=== PATIENT | female | born 1950 | race Caucasian/White ===

== ENCOUNTER 2016-12-30 20:03 | Inpatient (IN) | payer MEDICARE, BC ==
[~2016-12-30] VITALS: Ht 165.1 cm; Wt 64.1 kg
--- NOTE | ~2016-12-30 | HEMODYNAMI ---
PATIENT:KYLIE MOTTA MEDICAL RECORD: [id number] : 52 LOCATION:[facility] D.2309 ADMISSION DATE: 12/30/16 Generatedon:12/31/201616:25 Patient name: KYLIE MOTTA Patient #: [id number] SSN: DO B: 1950 Date of study: 12/31/2016 Page: Of Hemodynamic Procedure Report Patient Data Patient Demographics Procedure consent was obtained First Name: KYLIE Gender: Female Last Name: KALIA : 1950 Middle Initial: GEORGINA Age: 66 year(s) Patient #: [id number] Race: Unknown Additional ID: [id number] Contact details Address: [address] [place] [address] State: [place] City: [place] Zip code: [address] Admission Admission Data Admission Date: 12/30/2016 Admission Time: 22:56 Room #: D2309 Procedure Procedure Types Cath Procedure Diagnostic Procedure LHC LHC w/Coronaries Miscellaneous Procedures Moderate Sedation up to 15 minutes Procedure Description Procedure Date Procedure Date: 12/31/2016 Procedure Start Time: 16:18 Procedure End Time: 16:24 Procedure Staff Name Function Kahlil Dumont MD Performing Physician Suzy Sun RT Scrub Angelic Dolan RN Nurse Simon Jenkins RT Monitor Procedure Data Cath Procedure Fluoroscopy Diagnostic fluoroscopy Total fluoroscopy Time: 0.8 time: 0.8 min min Diagnostic fluoroscopy Total fluoroscopy dose: 202 dose: 202 mGy mGy Contrast Material Contrast Material Type Amount (ml) Isovue 300 43 Entry Location Entry Primary Successful Side Size Upsize Upsize Entry Closure Mcmullen ccessful Closure Location (Fr) 1 (Fr) 2 (Fr) Remarks Device Remarks Radial Right 6 Fr Mechanical artery Short Compression Estimated blood loss: 10 ml Diagnostic catheters Device Type Used For End Catheter Placement Cordis RBL 4 catheter (NO Procedure CHARGE) Procedure Complications No complications Procedure Medications Medication Administration Route Dosage Heparin Flush Bag added to field 2 bags (1000units/500ml NS) Lidocaine 2% added to field 20 Radial Cocktail added to field 1 syringe (Verapomil 2mg/Nitro 400mcg/Heparin 1500units) Oxygen NC 2 l/min Versed I.V. 1 mg Fentanyl I.V. 50 mcg Versed I.V. 1 mg Fentanyl I.V. 50 mcg Fentanyl I.V. 50 mcg Radial Cocktail I.A. 1 syringe (Verapomil 2mg/Nitro 400mcg/Heparin 1500units) Fentanyl I.V. 50 mcg Hemodynamics Rest Heart Rate: 87 (bpm) Pressure Samples Time Site Value (mmHg) Purpose Heart Use Rate(bpm) 16:21 AO 110/67(86) Snapshot 88 Snapshots Pre Cath Intra NCS Post Cath Vital Signs Time Heart Resp SPO2 etCO2 US5dhzp NIBP (mmHg) Rhythm Pain Status Sed ation Rate (ipm) (%) (mmHg) (mmHg) Level (bpm) 16:06:29 89 14 100 0 0 142/83(109) NSR 10 (11) , 10( A) Unimaginable unspeakable 16:10:43 87 16 99 0 0 137/76(107) NSR 10 (11) , 10( A) Unimaginable unspeakable 16:14:57 84 16 99 0 0 123/73(101) NSR 8 (11) , 10( A) Utterly horrible 16:19:08 82 16 100 0 0 123/63(83) NSR 8 (11) , 10( A) Utterly horrible 16:23:18 88 16 96 0 0 96/47(68) NSR 4 (11) , 10( A) Distressing Medications Time Medication Route Dose Verified Delivered Reason Notes Effectiveness by by 16:05:33 Lidocaine 2% added 20ml Kahlil Guillory to sharp's to vial Tim Dumont MD field 16:05:40 Radial Cocktail added 1 Kahlil Guillory used for (Verapomil to syringe Tim Dumont MD procedure 2mg/Nitro field 400mcg/Heparin 1500units) 16:05:48 Heparin Flush added 2 bags Kahlil Guillory used for Bag to Tim Dumont MD procedure (1000units/500ml field NS) 16:06:04 Oxygen NC 2 l/min Kahlil Angelic for back Tim Dolan RN pain 16:11:56 Versed I.V. 1 mg Kahlil Angelic for sedation Tim Dolan RN 16:12:02 Fentanyl I.V. 50 mcg Kahlil Angelic for sedation Tim Dolan RN 16:14:23 Versed I.V. 1 mg Kahlil Angelic for sedation Tim Dolan RN 16:14:26 Fentanyl I.V. 50 mcg Kahlil Angelic for sedation Tim Dolan RN 16:17:40 Fentanyl I.V. 50 mcg Kahlil Angelic for sedation Tim Dolan RN 16:20:19 Radial Cocktail I.A. 1 Kahlil Guillory for (Verapomil syringe Tim Dumont MD vasodilation 2mg/Nitro 400mcg/Heparin 1500units) 16:21:02 Fentanyl I.V. 50 mcg Kahlil Bolanosrey for sedation Tim Dumont MD Procedure Log Time Note 15:37:00 Diagnostic Cath status Elective 15:37:05 Simon VASQUEZ(R) sent for patient. Start room use. 15:37:06 Time tracking: Regular hours 15:37:12 Plan of Care:Hemodynamics will remain stable., Cardiac rhythm will remain stable., Comfort level will be maintained., Respiratory function will remain adequate., Patient/ family verbilizes understanding of procedure., Procedure tolerated without complication., Recovers from procedure without complications.. 15:57:28 Patient received from ICU to [facility]3] 1 Alert and oriented. Tansferred to table in Supine position. 16:05:16 Vital chart was started 16:05:31 Warm blankets applied, and chandana hugger turned on for patient comfort. 16:05:31 Correct patient and procedure confirmed by team. 16:05:32 Signed procedure consent form obtained from patient. 16:05:33 Lidocaine 2% 20ml vial added to field was administered by Kahlil Dumont MD; to sharp's; 16:05:33 ECG and BP/O2 sat monitors applied to patient. 16:05:40 Radial Cocktail (Verapomil 2mg/Nitro 400mcg/Heparin 1500units) 1 syringe added to field was administered by Kahlil Dumont MD; used for procedure; 16:05:48 Heparin Flush Bag (1000units/500ml NS) 2 bags added to field was administered by Kahlil Dumont MD; used for procedure; 16:06:04 Oxygen 2 l/min NC was administered by Angelic Dolan RN; for back pain; 16:08:34 Baseline sample Acquired. 16:08:37 Rhythm: sinus rhythm 16:08:39 Full Disclosure recording started 16:09:18 H&P Date Dictated: 12/30/2016 Within 30 days and on chart.. 16:09:19 Pre-procedure instructions explained to patient. 16:09:20 Pre-op teaching completed and patient verbalized understanding. 16:09:21 Family in waiting room. 16:09:22 Patient NPO since Midnight. 16:09:24 Is the patient allergic to Iodine/contrast media? No. 16:09:31 Is patient on blood thinner?No 16:09:34 ACC The patient was administered the following blood thiners within the last 24 hours: None 16:09:36 Patient diabetic? No. 16:09:40 Patient not . Patient is over age 55. 16:09:41 Previous problem with sedation/anesthesia? No ? 16:09:42 Snore? Yes 16:09:43 Sleep apnea? No 16:09:45 Deviated septum? No 16:09:46 Opens mouth fully? Yes 16:09:46 Sticks out tongue? Yes 16:09:48 Airway obstruction? No ? 16:09:51 Dentures? No ? 16:09:54 Pre procedure: right dorsailis pedis pulse 1+ Palpable, but thready & weak; easily obliterated 16:09:56 Modified Dario's test Ulnar < 7 seconds 16:10:14 Patient pain scale 10/10 Physician observed.. 16:10:23 IV patent on arrival in right forearm with 0.9% NaCl at O. 16:10:33 Lab results completed and on chart. 16:10:39 Right Radial & Right Groin area was prepped with chlora-prep and draped in sterile fashion 16:10:40 Alarms reviewed by R. N. 16:10:40 Sharps counted by scrub and verified by R.N. 16:10:42 --------ALL STOP TIME OUT------ 16:10:43 Final Timeout: patient, procedure, and site verified with staff and physician. All members of the team are in agreement. 16:10:45 Right Radial & Right Groin site verified by team. 16:10:48 Physical assessment completed. ASA score P 2 - A patient with mild systemic disease as per Kahlil Dumont MD. 16:10:52 Sedation plan: IV Moderate Sedation Versed, Fentanyl 16:10:55 Use device set Radial Dx 16:11:02 Tegaderm 4 x 4 opened to sterile field. 16:11:03 Acist Manifold opened to sterile field. 16:11:03 Acist Hand Control opened to sterile field. 16:11:05 Acist Syringe opened to sterile field. 16:11:05 Medline Cath Pack opened to sterile field. 16:11:06 Bag Decanter opened to sterile field. 16:11:06 Terumo 6Fr Slender Glidesheath opened to sterile field. 16:11:06 St Crispin 260cm J .035 wire opened to sterile field. 16:11:07 MBrace Wrist Support opened to sterile field. 16:11:56 Versed 1 mg I.V. was administered by Angelic Dolan RN; for sedation; 16:12:02 Fentanyl 50 mcg I.V. was administered by Angelic Dolan RN; for sedation; 16:14:23 Versed 1 mg I.V. was administered by Angelic Dolan RN; for sedation; 16:14:26 Fentanyl 50 mcg I.V. was administered by Angelic Dolan RN; for sedation; 16:17:40 Fentanyl 50 mcg I.V. was administered by Angelic Dolan RN; for sedation; 16:18:40 Procedure started. 16:18:45 Local anesthetic to right radial artery with Lidocaine 2% by Kahlil Dumont MD.INITIAL ACCESS ONLY 16:19:51 A 6 Fr Short sheath was inserted into the Right Radial artery 16:20:00 A CordWeight Wins RBL 4 catheter (NO CHARGE) was advanced over the wire and used for Procedure. 16:20:19 Radial Cocktail (Verapomil 2mg/Nitro 400mcg/Heparin 1500units) 1 syringe I.A. was administered by Kahlil Dumont MD; for vasodilation; 16:20:26 LV angiography performed. 16:20:27 LV gram done using BILLY 16:20:32 EF : 60 % 16:20:38 Injector settings: Ml/sec: 7, Volume: 15, 16:21:02 Fentanyl 50 mcg I.V. was administered by Kahlil Dumont MD; for sedation; 16:21:05 LCA angiography performed. 16:22:10 RCA angiography performed. 16:22:11 Catheter removed. 16:22:13 Terumo TR Band Standard opened to sterile field. 16:22:25 Sheath removed intact; hemostasis achieved with Mechanical Compression to the Right Radial artery. 16:22:29 Procedure ended.(Physican Out) 16:23:26 Fluoroscopy time 00.80 minutes. 16::31 Fluoroscopy dose: 202 mGy 16:23:31 Flurop Dose total: 202 16:23:41 Contrast amount:Isovue 300 43ml. 16:23:42 Sharps counted by scrub and verified by R.N. 16:23:46 TR band inflated with 10cc of air. 16:23:47 Insertion/operative site no bleeding no hematoma. 16:23:52 Post Procedure Pulses reassessed and unchanged 16:23:55 Post-procedure physical assessment completed. ASA score P 2 - A patient with mild systemic disease as per Kahlil Dumont MD. 16:23:58 Post procedure rhythm: unchanged. 16:24:06 Estimated blood loss: 10 ml 16:24:07 Post procedure instruction explained to patient.Patient verbalizes understanding. 16:24:08 Patient needs reinforcement of post procedure teaching. 16:24:20 Procedure Complication : No complications 16:24:29 Procedure and supply charges have been captured, reviewed, submitted and are correct. 16:24:30 Vital chart was stopped 16:24:30 See physician's report for complete and final results. 16:24:54 Report given to ICU. 16:24:57 Patient transfered to ICU with Bed. 16:24:59 Procedure ended. 16:24:59 Full Disclosure recording stopped 16:25:08 End room use (Document Last) Device Usage Item Name Manufacture Quantity Catalog Hospital Part Current Minimal Lot# / Number Charge Number Stock Stock Serial# Code Tegaderm 4 1 [id number] [id number] 5 x 4 Acist Acist 1 68166 388198 [id number] [id number] 5 Manifold [employer] Acist Hand Acist 1 13028 [id number] 254394 357818 5 Control [employer] Acist Acist 1 48688 537166 078249 655656 20 Syringe [employer] Medline Cardinal 1 [id number] 43678 036029 5 Cath Pack Health Bag Microtek 1 2002S 204748 74584 507017 5 [employer] Terumo 6Fr Terumo 1 [id number] 307532 862627 486297 [address] St Crispin 1 053401 025105 764481 926696 30 260cm J .035 wire MBrace Advanced 1 140-0250-00 894767 70117 221842 5 Wrist Vascular Support Dynamics Cordis RBL Cardinal 1 [id number] 521480 490273 5 4 catheter Health (NO CHARGE) Terumo TR Terumo 1 [id number] 314607 770066 700792 40 Band Standard Signature Audit Reardan Stage Time Signature Unsigned Intra-Procedure 12/31/2016 Simon Jenkins 4:25:21 PM RT(R) Signatures Monitor : Simon Jenkins RT Signature : Date : Time : [place] [address] [place] [address]
[~2016-12-30 20:03] MED LIST: ALTACE2.5 MG PO; AMBIEN10 MG PO; LIPITOR80 MG PO; PERCOCET 10/3251 TA1 PO; RESTORIL15 MG PO; ULTRAM50 MG PO; VOLTAREN75 MG PO; XANAX0.5 MG PO
[2016-12-30 21:05] LABS: APPEARANCE CLEAR (CLEAR); BILIRUBIN NEGATIVE (NEGATIVE); COLOR STRAW (YELLOW); GLUCOSE NEGATIVE (NEGATIVE); KETONE NEGATIVE (NEGATIVE); LEUKOCYTE ESTERASE TRACE (NEGATIVE); NITRITE NEGATIVE (NEGATIVE); PROTEIN NEGATIVE (NEGATIVE); UROBILINOGEN NORMAL (NORMAL)
[2016-12-30 21:06] LABS: BACTERIA FEW /hpf (NONE SEEN); EPITHELIAL CELLS 0-5 /hpf (0-5); MUCUS <1+ /lpf (NONE SEEN); RED CELLS - URINE OCC /hpf (0-5); WHITE CELLS - URINE RARE /hpf (0-5)
[2016-12-30 21:22] LABS: BASOPHILS 0.6 % (0.0-2.0); EOSINOPHILS 8.4 % (0-7); HEMATOCRIT 38.3 % (36.0-48.0); HEMOGLOBIN 13.1 g/dL (12-16); IMMATURE GRANULOCYTES 0.6 % (0-5); LYMPHOCYTES 37.1 % (15-50); MCH 28.2 pg (26.0-34.0); MCHC 34.2 g/dL (31.0-37.0); MCV 82.5 fL (80.0-100.0); MEAN PLATELET VOLUME 10.4 fL (7.4-10.4); NEUTROPHILS 44.3 % (40-80); PLATELET COUNT 285 10x3/uL (130-400); RBC 4.64 10x6/uL (4.00-5.40); RDW 12.9 % (11.5-14.5)
[2016-12-30 21:24] LABS: ALBUMIN 3.8 g/dL (3.4-5.0); ALKALINE PHOSPHATASE 71 U/L (46-116); ALT (SGPT) 38 U/L (10-68); BILIRUBIN - TOTAL 1.31 mg/dL (0.2-1.3); CALC OSMOLALITY 258 mosm/kg (275-300); CALCIUM 8.9 mg/dL (8.5-10.1); CARBON DIOXIDE 22.2 mmol/L (21.0-32.0); CHLORIDE - SERUM 92 mmol/L (98-107); CREATINE KINASE 149 UL (21-215); CREATININE - SERUM 0.9 mg/dL (0.6-1.3); GLUCOSE 124 mg/dL (74-106); MAGNESIUM - SERUM 1.7 mg/dL (1.8-2.4); POTASSIUM - SERUM 3.3 mmol/L (3.5-5.1); PRO BNP 125 pg/mL (0-125); PROTEIN - SERUM 6.3 g/dL (6.4-8.2); SODIUM 129 mmol/L (136-145); UREA NITROGEN 10 mg/dL (7-18); eGFR NON AFRICAN AMERICAN 67 mL/min (90-120)
[2016-12-30 21:27] LABS: TROPONIN-I < 0.017 ng/mL (0.000-0.060)
[2016-12-30 21:37] LABS: UDS - AMPHET NEGATIVE QUAL (NEGATIVE); UDS - BARB NEGATIVE QUAL (NEGATIVE); UDS - BENZO POSITIVE QUAL (NEGATIVE); UDS - COCAINE NEGATIVE QUAL (NEGATIVE); UDS - METH NEGATIVE QUAL (NEGATIVE); UDS - OPIATE NEGATIVE QUAL (NEGATIVE); UDS - PCP NEGATIVE QUAL (NEGATIVE); UDS - THC NEGATIVE QUAL (NEGATIVE)
[2016-12-31] VITALS (33 sets, daily range): BP systolic 87–156; BP diastolic 48–89; Ht 165.1 cm; Wt 64.1 kg
--- NOTE | 2016-12-31 01:57 | NUR ---
RECEIVED PATIENT FROM ER VIA STRETCHER, INITIAL ASSESSMENT COMPLETED PER FLOWSHEET. PATIENT UNRESPONSIVE TO COMMANDS AND PAINFUL STIMULI. EYES PERRLA @ 2MM WITH SLUGGISH RESPONSE, SCLERA IS WHITE. ORAL/NASAL MUCOSA IS MOIST AND INTACT, TONGUE IS MIDLINE. S1/S2 NOTED WITH PATIENT NSR ON TELEMETRY, HR 74 RYTHMIC AND REGULAR. BREATHING IS SHALLOW AND RAPID ON 15L VIA NRB MASK, EXPIRATORY WHEEZE NOTED BILATERAL UPPER WITH DIMINISHED MID AND LOWER. USE OF ACCESSORY MUSCLES NOTED. ABDOMEN IS ROUND AND SOFT, BOWEL SOUNDS ACTIVE X4. LICONA CATH SECURED VIA STATLOCK, CLEAR YELLOW URINE NOTED IN COLLECTION. ALL PULSES PALPABLE WITH NO MOVEMENT IN EXTREMITIES, CAP REFILL < 3 SEC. PIV X2 BILATERAL A/C, PATENT WITH FLUIDS INFUSING. NO FURTHER NEEDS AT THIS TIME, ALL VSS AND WILL CONTINUE TO MONITOR.
--- NOTE | 2016-12-31 03:03 | NUR ---
REASSESSMENT COMPLETED PER FLOWSHEET, PATIENT RESTING IN BED WITH EYES CLOSED. PATIENT MORE ALERT AND RESPONDS TO COMMANDS, SLIGHTLY LETHARGIC WITH SOFT/SLURRED SPEECH. NSR ON TELEMETRY WITH HR 65, RHYTHMIC AND REGULAR. BREATHING IS SLIGHTLY SHALLOW WITH USE OF ACCESSORY MUSCLES, NRB MASK @ 15L WITH OXYGEN SAT 96%. PATIENT SHIVERING WITH PILOERECTION NOTED, WARM BLANKETS PROVIDED AND PATIENT APPEARS CALMER. PATIENT DENIES PAIN OR OTHER NEEDS AT THIS TIME, ALL VSS AND WILL CONTINUE TO MONITOR.
[2016-12-31 04:51] LABS: BASOPHILS 0.1 % (0.0-2.0); EOSINOPHILS 0.2 % (0-7); HEMATOCRIT 37.6 % (36.0-48.0); HEMOGLOBIN 12.7 g/dL (12-16); IMMATURE GRANULOCYTES 0.5 % (0-5); LYMPHOCYTES 6.4 % (15-50); MCH 28.3 pg (26.0-34.0); MCHC 33.8 g/dL (31.0-37.0); MCV 83.7 fL (80.0-100.0); MEAN PLATELET VOLUME 10.1 fL (7.4-10.4); MONOCYTES 6.2 % (2-11); NEUTROPHILS 86.6 % (40-80); PLATELET COUNT 236 10x3/uL (130-400); RBC 4.49 10x6/uL (4.00-5.40); RDW 12.9 % (11.5-14.5); WBC 13.5 10x3/uL (4.8-10.8)
--- NOTE | 2016-12-31 05:10 | NUR ---
PATIENT RESTING IN BED WITH EYES CLOSED ON BIPAP @ 30%, OXYGEN SAT 96%. PATIENT OPENS EYES SPONTANEOUSLY AND CAN FOLLOW COMMANDS, COOPERATIVE AND CALM. WEAKNESS NOTED ALL EXTREMITIES, ALL PULSES PALPABLE. PATIENT DENIES PAIN AT THIS TIME, ALL VSS AND WILL CONTINUE TO MONITOR.
[2016-12-31 05:11] LABS: ALBUMIN 3.5 g/dL (3.4-5.0); ALKALINE PHOSPHATASE 67 U/L (46-116); BILIRUBIN - TOTAL 1.37 mg/dL (0.2-1.3); CALC OSMOLALITY 261 mosm/kg (275-300); CALCIUM 7.9 mg/dL (8.5-10.1); CARBON DIOXIDE 26.4 mmol/L (21.0-32.0); CHLORIDE - SERUM 93 mmol/L (98-107); CREATININE - SERUM 0.8 mg/dL (0.6-1.3); GLUCOSE 162 mg/dL (74-106); MAGNESIUM - SERUM 1.7 mg/dL (1.8-2.4); PHOSPHOROUS 3.6 mg/dL (2.5-4.9); PROTEIN - SERUM 6.4 g/dL (6.4-8.2); SODIUM 129 mmol/L (136-145); UREA NITROGEN 10 mg/dL (7-18); eGFR NON AFRICAN AMERICAN 76 mL/min (90-120)
[2016-12-31 05:16] LABS: ALT (SGPT) 50 U/L (10-68); C-REACTIVE PROTEIN < 0.2 mg/dL (0.0-0.9); POTASSIUM - SERUM 3.8 mmol/L (3.5-5.1)
[2016-12-31 05:56] LABS: ERYTHROCYTE SEDIMENTATION RATE 0 mm/hr (0-30)
--- NOTE | 2016-12-31 08:36 | NUR ---
DR MENJIVAR HERE AND HE SPOKE TO PT'S IN ICU.
--- NOTE | 2016-12-31 08:57 | NUR ---
Is the patient Alert and Oriented? Yes 0 * How many steps to enter\exit or inside your home? 0 0 * PCP DR ADAIR 0 * Pharmacy [facility] [address] 0 * Preadmission Environment Home with Family 0 * ADLs Independent 0 * Equipment None 0 * List name and contact numbers for known caregivers / representatives who currently or will assist patient after discharge: SPOUSE: DEEDEE [phone] DAUGHTER: BRETT: [phone] DAUGHTER: FREYA [phone] DAUGHTER: GRICEL: [phone] * Community resources currently utilized None 0 * Additional services required to return to the preadmission environment? No 0 * Can the patient safely return to the preadmission environment? Yes 0 * Has this patient been hospitalized within the prior 30 days at any hospital? No PATIENT IS AWAKE AND ALERT. HER , DEEDEE, IS AT BEDSIDE AND ASSISTS WITH ANSWERING QUESTIONS. SHE WAS INDEPENDENT IN ADL'S AND SHE WAS LIVING AT HOME WITH HER SPOUSE. HER PCP IS DER. ADAIR. SHE GETS HER MEDS AT [facility]. SHE DENIES EVER HAVING HOME HEALTH AND HAS NO DME. PATIENT STATES THERE ARE NO STEPS TO ENTER HER HOME. PATIENT'S OR HER DAUGHTERS WILL BE AVAILABLE TO DRIVE HER HOME AT DISCHARGE. NO NEEDS AT THIS TIME.
--- NOTE | 2016-12-31 10:44 | NUR ---
PT C/O CHEST AND BACK PAIN. DILAUDID GIVEN.
--- NOTE | 2016-12-31 15:31 | NUR ---
PT C/O C/P. CALLED DR ISAAC AT OFFICE AND REPORTED. NO ORDERS REC'D AT PRESENT.
[2016-12-31 18:35] LABS: AMYLASE - SERUM 61 U/L (25-115); LIPASE 126 U/L (73-393)
--- NOTE | 2016-12-31 20:30 | NUR ---
PT RECEIVED TO ROOM CV6 TRANSFERRED FROM ICU. ACCOMPANIED BY STAFF AND FAMILY. TRANSFERRED FROM ICU BED TO CVICU BED WITH MODERATE ASSIST. PT CONNECTED TO STANDARD ICU MONITORS WITH ALL ALARMS SET AND VERIFIED. ORIENTATED TO ROOM. TR BAND IS PRESENT ON RIGHT RADIAL. WILL REDUCE PRESSURE AND REMOVE APPROPRIATE
--- NOTE | 2016-12-31 21:00 | NUR ---
FAMILY AT BEDSIDE TO VISIT
--- NOTE | 2016-12-31 21:51 | NUR ---
TR HAS BEEN REMOVED. NO BLEEDING NOTED. PRESSURE DRESSING APPLIED
--- NOTE | 2016-12-31 23:00 | NUR ---
SHIFT REASSESSMENT COMPLETED. NO SIGNIFICANT CHANGES. PT HAS BEEN RESTING WELL DENYING PAIN WHEN ASKED. PILLOWS USED TO PROVIDE SUPPORT AND RELIEVE PRESSURE.
[2017-01-01] VITALS (21 sets, daily range): BP systolic 126–172; BP diastolic 48–89
--- NOTE | 2017-01-01 01:00 | NUR ---
RESP REG AND NONLABORED
--- NOTE | 2017-01-01 03:00 | NUR ---
SHIFT REASSESSMENT COMPLETED NO SIGNIFICANT CHANGES. PT HAS HAD NO BLEEDING FROM RIGHT RADIAL SITE OF CATH AND HAS HAD NO SEIZURES THIS SHIFT
[2017-01-01 04:32] LABS: BASOPHILS 0.1 % (0.0-2.0); EOSINOPHILS 1.9 % (0-7); HEMATOCRIT 37.6 % (36.0-48.0); HEMOGLOBIN 12.6 g/dL (12-16); IMMATURE GRANULOCYTES 0.3 % (0-5); LYMPHOCYTES 12.6 % (15-50); MCH 28.3 pg (26.0-34.0); MCHC 33.5 g/dL (31.0-37.0); MCV 84.3 fL (80.0-100.0); MEAN PLATELET VOLUME 10.1 fL (7.4-10.4); MONOCYTES 7.7 % (2-11); NEUTROPHILS 77.4 % (40-80); PLATELET COUNT 224 10x3/uL (130-400); RBC 4.46 10x6/uL (4.00-5.40); RDW 13.3 % (11.5-14.5)
[2017-01-01 04:34] LABS: WBC 7.5 10x3/uL (4.8-10.8)
[2017-01-01 04:47] LABS: ALBUMIN 3.1 g/dL (3.4-5.0); ALKALINE PHOSPHATASE 61 U/L (46-116); ALT (SGPT) 55 U/L (10-68); BILIRUBIN - TOTAL 1.19 mg/dL (0.2-1.3); CALCIUM 7.9 mg/dL (8.5-10.1); CARBON DIOXIDE 27.3 mmol/L (21.0-32.0); CHLORIDE - SERUM 105 mmol/L (98-107); CREATININE - SERUM 0.7 mg/dL (0.6-1.3); GLUCOSE 127 mg/dL (74-106); POTASSIUM - SERUM 3.4 mmol/L (3.5-5.1); PROTEIN - SERUM 5.8 g/dL (6.4-8.2); SODIUM 139 mmol/L (136-145); eGFR NON AFRICAN AMERICAN 89 mL/min (90-120)
[2017-01-01 04:57] LABS: CALC OSMOLALITY 276 mosm/kg (275-300); UREA NITROGEN 4 mg/dL (7-18)
--- NOTE | 2017-01-01 05:38 | NUR ---
PT C/O BACK ACHE. MEDS GIVEN PER DEC. F/C CARE DONE PER PROTOCOL, SURE STEP SYSTEM. PT HAS SLEPT WELL TONIGHT AND HAD NO C/O PAIN UNTIL NOW. NO SEIZURE ACTIVITY THIS SHIFT
--- NOTE | 2017-01-01 06:44 | NUR ---
U/S AT BEDSIDE FOR U/S OF GB
--- NOTE | 2017-01-01 07:15 | NUR ---
REPORT RECIEVED FROM AUTOMATIC CHIEF NURSE. PT RESTING IN BED QUIETLY. NO S/SX OF ACUTE DISTRESS NOTED AT THIS TIME. ASSSESSMENT COMPLETE PER FLOWSHEET. CALL LIGHT IN REACH. BED IN LOW POSITION. WILL CONTINUE TO ASSESS FOR CHANGES THROUGHOUT SHIFT.
--- NOTE | 2017-01-01 07:18 | HP ---
PATIENT: KYLIE MOTTA MEDICAL RECORD: [id number] ACCOUNT: [id number] LOCATION:[facility] : 52 ADMISSION DATE: 12/30/16 HISTORY AND PHYSICAL EXAMINATION DATE OF ADMISSION: 12/31/2016 CHIEF COMPLAINT: New onset seizures. HISTORY OF PRESENT ILLNESS: The patient is a 66-year-old healthy female who apparently was watching TV with her last night. Apparently, suddenly, the patient developed tonic-clonic seizure-type activity lasting anywhere from 2-5 minutes. Apparently, the patient was quite sedated thereafter. The patient did lose both bowel and bladder control, presented to the Emergency Room and apparently had a witnessed grand mal seizures in the Emergency Room. The patient was also found to be somewhat hypoxic. She had CT scan performed, which did reveal possible bilateral pneumonia. The patient was admitted to ICU. PAST MEDICAL HISTORY: Significant that she has had history of having carpal tunnel syndrome. She has had hysterectomy. She is a . History of having anemia. She has had hyperlipidemia, history of anxiety, osteoporosis, depression. ALLERGIES: CODEINE. MEDICATIONS: Included alprazolam 0.5 q.6 hours p.r.n. anxiety, atenolol 25 mg 1 p.o. b.i.d., atorvastatin 80 mg once a day, Flexeril 10 mg p.o. q.h.s., diclofenac 75 mg 1 q.12 hours p.r.n. severe pain, also was on ibandronate 150 mg monthly. She is on Lidocaine 5% topical patch, Ramipril 2.5 mg once a day, Zoloft 100 mg once a day, is on Toradol 1-2 q.6 hours p.r.n., Ambien 10 mg p.o. q.h.s. FAMILY HISTORY: Significant for heart disease. Maternal grandmother had CVA. Mother and father both had heart disease, hypertension in both parents, sister with diabetes. SOCIAL HISTORY: The patient is a nonsmoker, nondrinker. Educated through the 12th grade. She is currently . REVIEW OF SYSTEMS: GENERAL: She denies any headaches. She had never had seizures until last night. CARDIOVASCULAR: She does report having some pressure in her chest. She had no history of having dyspnea on exertion. She has had no cough. She has had no congestion. GASTROINTESTINAL: She has had some intermittent lower abdominal discomfort. GENITOURINARY: No urgency, frequency, or dysuria. PHYSICAL EXAMINATION: VITAL SIGNS: In the Emergency Room, the patient's temperature was 97, her respirations 28, blood pressure 122/56. She complained of a 10 chest pain. O2 sat was 94%. HEENT: Unremarkable. NECK: Supple. There is no adenopathy. HEART: Has regular rhythm. No murmurs, gallops, rub. HISTORY AND PHYSICAL [id number] KYLIE MOTTA LUNGS: Clear. ABDOMEN: Soft, nontender. EXTREMITIES: Lower extremities have no edema. IMAGING: The patient had a chest CT scan showing borderline cardiomegaly, no active findings. The patient also had abdominal CT, which results are not present at the present time. LABORATORY DATA: She had a white count of 11, hemoglobin 13.1, hematocrit 38.3 and her platelets were 285. Sodium 129, potassium 3.8, chloride is 93, CO2 is 26. Her glucose was 162. She is positive for benzodiazepine. Urinalysis was unremarkable. She had D-dimer of 2.21. She had blood gases apparently on room air, pH 7.156, pCO2 of 65, pO2 was 414, O2 sat was 99%. ASSESSMENT: 1. New onset seizure. 2. Hypoxia. 3. Chest pain, etiology unknown. PLAN: The patient is admitted to ICU. She will be placed on vancomycin as well as Levaquin. Cardiology consultation will be obtained along with an echocardiogram. Also, neurology consultation will be obtained. The patient will have CT of the head. She will also have an EEG. We will continue to give Ativan on a p.r.n. basis. Continue to evaluate. TRANSINT:[id number] Voice Confirmation ID: [id number] DOCUMENT ID: [id number] TRAE ADAIR MD at 0718 CC: [id number] DICTATION DATE: 12/31/16704 BICYCLE RENTAL CLERK: 12/31/16 0843 ADM IN [id number] [place] [address]
--- NOTE | 2017-01-01 08:15 | NUR ---
DR. MENJIVAR AT BEDSIDE. MRI RESULTS PULLED UP.
--- NOTE | 2017-01-01 09:00 | NUR ---
FAMILY PERSISTENT ABOUT TALKING TO DR. MENJIVAR. DR. MENJIVAR CALLED AND HE SPOKE WITH FAMILY. QUESTIONS ANSWERED.
--- NOTE | 2017-01-01 12:00 | NUR ---
FAMILY AT BEDSIDE. CONCERNED WITH FURTHER TESTING. STATED THEY WANTED TO SPEAK TO DR. ADAIR. [facility] CALLED AND SPOKE WITH NURSE. NURSE STATED SHE SPOKE TO DR. [facility] AND HE DOES NOT PLAN ON ORDERING ANY FURTHER TESTS AT THIS TIME AND HE WOULD BE BY IN THE MORNING. REPORTED TO FAMILY.
--- NOTE | 2017-01-01 12:19 | NUR ---
XANAX ADMINSITERED PER ORDERS FOR ANXIETY.
--- NOTE | 2017-01-01 15:00 | NUR ---
FAMILY AT BEDSIDE. UPDATE PROVIDED.
--- NOTE | 2017-01-01 19:15 | NUR ---
REPORT RECEIVED AND CARE ASSUMED. INITIAL SHIFT ASSESSMENT COMPLETED. SEE FLOWSHEET. PT DENIES NEEDS. ABLE TO REPOSITION SELF IN BED WITHOUT ASSIST NO SIGNS OF DISTRESS. F/C D/C'D PER ORDER
--- NOTE | 2017-01-01 21:00 | NUR ---
VISITORS AT BEDSIDE PT ABLE TO UPDATE THEM
--- NOTE | 2017-01-01 21:30 | NUR ---
PT AMBULATED TO BATHROOM. ONLY STANDBY ASSISTANCE NEEDED. SHE VOIDED 200 CC OF CLEAR YELLOW URINE AND HAD SMALL BM. SET UP PROVIDED FOR BATH AND PT WASHED SELF INDEPENDENTLY. BED LINENS CHANGED AND PT PERFORMED OWN HS ADL CARE AND THEN CONNECTED BACK ONTO STANDARD MONITORING. PT IS BEING MONITORED PER STANDARD ICU PROTOCOL WITH ALL ALARMS SET. PT DOES HAVE ORDERS TO BE TRANSFERRED TO THE "FLOOR" BUT NO BEDS ARE CURRENTLY AVAILABLE. ALL IVS ARE S/L AND FLUSH EASILY. (RAC, LAC)
--- NOTE | 2017-01-01 23:00 | NUR ---
PT SLEEPING RESP REG AND NONLABORED. SPO2 REMAINS IN HIGH 90'S ON ROOM AIR.
--- NOTE | 2017-01-02 01:00 | NUR ---
PT UP TO BATHROOM TO VOID. DID NOT URINATE IN [place] HAT THEREFORE NOT MEASURED. AMBULATED WITHOUT ASSIST. GAIT STEADY
[2017-01-02 03:00] VITALS: BP 135/73
--- NOTE | 2017-01-02 03:00 | NUR ---
PT SLEEPING WELL, AFEBRILE. RESP REG AND NONLABORED. NO SEIZURE ACTIVITY THIS SHIFT
--- NOTE | 2017-01-02 05:00 | NUR ---
PT CONTINUES TO SLEEP. RESP REG AND NONLABORED
--- NOTE | 2017-01-02 06:00 | NUR ---
SPOUSE AND DAUGHTER AT BEDSIDE. QUESTIONS ANSWERED AND UPDATE GIVEN
[2017-01-02] MEDS ORDERED: DILANTIN100 MG PO (07:08)
[2017-01-02 07:15] VITALS: BP 144/90
--- NOTE | 2017-01-02 07:45 | NUR ---
ASSESSMENT COMPLETE. AAOX4. NSR HR 90'S. ROOM AIR. CLEAR LUNG LOBES. S1S2 NOTED,RADIAL AND PEDAL PULSES PALP. NO WEAKNESS NOTED. BOWEL SOUNDS X4 ACTIVE. NO EDEMA NOTED. PIV PATENT, SL, SEE IV FLOWSHEET. FOR OTHER ASSESSMENT FINDINGS SEE FLOWSHEET. SCD'S ON.
--- NOTE | 2017-01-02 10:00 | NUR ---
FAMILY AT BEDSIDE. D/C INSTRUCTIONS GIVEN. CALLED [facility] AND LET THEM KNOW DAUGHTER WILL COOK RESTAURANT MEDICATION.
--- NOTE | 2017-01-02 10:08 | NUR ---
Patient Name: KYLIE MOTTA Encounter No: [id number] : 1950 Primary Insurance: MEDICARE A & B Anticipated DC Date: 01-02-2017 Planned Disposition: Home External Planned Provider: DR ADAIR DCP follow-up note: Patient with DC order for today. Patient and family in agreement with discharge plan. No changes to plan. DC IMM signed and placed in patient's chart. Case management will follow and assist as needed. Talia Stratton RN, CM
--- NOTE | 2017-01-05 07:17 | EEG ---
PATIENT:KYLIE MOTTA DATE OF SERVICE: 12/30/16 MEDICAL RECORD: [id number] DATE OF : 52 LOCATION:[id number] ADMISSION DATE: 12/30/16 REFERRING PHYSICIAN: INTERPRETING PHYSICIAN: BRI MENJIVAR MD DATE OF SERVICE: 12/31/2016 Referred by myself as an inpatient in room 2309. ELECTROENCEPHALOGRAM NUMBER: [id number]. DATE OF EXAMINATION: 12/31/2016 at 10:00 a.m. TECHNICAL DATA: This electroencephalographic recording consists of approximately 20 minutes of data collection utilizing the international 10/20 system of electrode placement and both referential and non-referential montages. Sixteen channels of electrocerebral recording are accompanied by a 17th channel dedicated to the electrocardiographic rhythm and 2 channels of electromyographic recording. Recording is performed in the awake and drowsy states utilizing activation by photic stimulation. ELECTROENCEPHALOGRAPHIC DATA: The awake state comprises approximately 70% of the recorded electrocerebral activity. Electromyographic artifact is prominent and rapid eye movements are seen. The posterior dominant background consists of a well-developed, symmetric, semi-arrhythmic waxing and waning alpha activity of 8-9 Hz, which is suppressed by eye opening. The drowsy state comprises the remaining portion of the recorded electrocerebral activity. Electromyographic artifact is diminished and rapid eye movements are not seen. A few positive occipital sharp transients of sleep are observed. No abnormal or focal slowing is identified. No epileptiform discharges are seen. Photic stimulation induces no abnormal change in the recorded electrocerebral activity. INTERPRETATION: Normal (awake and drowsy). This is a normal electroencephalographic recording. TRANSINT:[id number] Voice Confirmation ID: [id number] DOCUMENT ID: [id number] BRI MENJIVAR MD at 0717 CC: [id number] DICTATION DATE: 01/01/17 0737 REAL ESTATE OPERATIONS MANAGER: 01/01/17 0858 DIS IN 01/02/17 [place] [id number] [place] [id number]
--- NOTE | 2017-01-07 14:38 | EC ---
PATIENT:KYLIE MOTTA DATE OF SERVICE: 12/30/16 SEX: F MEDICAL RECORD: [id number] DATE OF : 52 LOCATION:[place] [address] AGE OF PATIENT: 66 ADMISSION DATE: 12/30/16 REFERRING PHYSICIAN: INTERPRETING PHYSICIAN: ADELITA DUMONT MD ECHOCARDIOGRAM REPORT ECHO CHARGES 4 ECHO COMPLETE CLINICAL DIAGNOSIS: PERICARDIAL EFFUSION/SOB/CHEST PAIN ECHOCARDIOGRAPHIC MEASUREMENTS (adult normal given) AC root (d.<3.7cm) 3.7 LV Septum d (<1.2 cm> 1.3 Valve Excursion 1.9 LV Septum (systole) 1.6 Left Atria (s.<4.0cm> 3.8 LVPW d(<1.2cm) 1.4 RV (d.<2.3cm) 3.1 LVPW (sytole) 1.7 LV diastole(<5.6CM) 3.4 MV E-F(>70mm/sec) LV systole 2.2 LVOT Diameter 1.9 MV exc.(>10mm) 1.5 Est.ejection fraction (50-75%) Pericardial Effusion N DOPPLER: LVIT A 69.0 E 78.0 LA RVSP 41 LVOT 116 AOP1/2T Asc. Ao 179 RVOT 60 RA PA 125 AV Gradient Peak 12.86 AV Mean 6.21 AV Area 2.4 MV Gradient Peak 3.7 MV Mean 1.4 MV Area COMMENTS: Superintendent General: Basilio ARREDONDO Insert Cutter:1 Dr. Dumont TAPE# PACS DATE OF SERVICE: 12/31/2016 FINDINGS: 1. Left ventricular chamber size is within normal limits. Left ventricular systolic function is normal. Overall ejection fraction estimated at 60%. 2. Left atrium is within normal limits at 3.8 cm. Right atrium and right ventricular chamber sizes are mildly dilated. 3. Valvular structures have normal structure and motion. 4. Doppler interrogation reveals mild to moderate tricuspid regurgitation, no other valvular insufficiency or stenosis. Pulmonary systolic pressure is ECHOCARDIOGRAM REPORT [id number] KYLIE MOTTA estimated 41 mmHg. 5. Trace pericardial effusion is present. This is not hemodynamically significant. 6. No evidence of left ventricular thrombus. TRANSINT:[id number] Voice Confirmation ID: [id number] DOCUMENT ID: [id number] ADELITA DUMONT MD at 1438 CC: [id number] DICTATION DATE: 12/31/16 1218 SEARCH COORDINATOR: 12/31/16 1446 DIS IN 01/02/17 [place] [id number] [place] [address]
--- NOTE | 2017-01-07 14:38 | OP ---
PATIENT NAME: KYLIE MOTTA MEDICAL RECORD: [id number] :52 LOCATION:[facility] ADMISSION DATE:12/30/16 SURGEON: ADELITA ISAAC MD DATE OF OPERATION: 12/31/2016 PROCEDURES: 1. Left heart catheterization. 2. Selective coronary angiography. 3. Left ventriculogram. DESCRIPTION OF PROCEDURE: After informed consent was obtained and after detailed explanation of risks, benefits as well as alternative therapies, the patient elected to proceed with angiogram and heart catheterization. The right radial area was prepped and draped in normal sterile fashion. The right radial artery was cannulated via modified Seldinger technique with placement of 5-Mozambican sheath. All catheters exchanged through this sheath. FINDINGS: Left ventriculogram was performed in standard 30-degree BILLY view, reveals good cardiac wall motion throughout all segments. Overall ejection fraction is 60%. SELECTIVE CORONARY ANGIOGRAPHY: 1. Left main showed no significant angiographic disease. 2. Left anterior descending has previously placed stent that is widely patent with no significant restenosis. No disease elsewise throughout the LAD or its branches. 3. Left circumflex has moderate irregularities, but no flow-limiting stenosis. 4. Right coronary has moderate irregularities, but no flow-limiting stenosis. OVERALL IMPRESSION: Chest pain is noncardiac in etiology. No significant coronary artery disease is present. No restenosis of previously placed stent. TRANSINT:[id number] Voice Confirmation ID: [id number] DOCUMENT ID: [id number] ADELITA ISAAC MD at 1438 CC: [id number] DICTATION DATE: 12/31/16 1625 MICA PLATE LAYER: 12/31/16 2213 DIS IN 01/02/17 [place] [id number] [place] [address]
--- NOTE | 2017-01-07 14:38 | CN ---
PATIENT NAME:KYLIE RIVERO MEDICAL RECORD: [id number] : 52 LOCATION:[facility] ADMIT DATE: 12/30/16 ACCOUNT: [id number] CONSULTING PHYSICIAN: ADELITA ISAAC MD REFERRING PHYSICIAN: TRAE ADAIR MD DATE OF CONSULTATION: 12/31/2016 Cardiology Consultation DIAGNOSES: 1. Seizure. 2. Angina. 3. Coronary artery disease. 4. Previous percutaneous transluminal coronary angioplasty stent. 5. Hypertension. 6. Hyperlipidemia. HISTORY OF PRESENT ILLNESS: Mrs. Rivero presents after a seizure. She does not have a history of seizures, this was new onset. She began having angina as well. Her chest pain is compatible with her previous angina. She does have PTCA stent approximately 9 years ago. She has had no dysrhythmias. Here, troponin is normal. PHYSICAL EXAMINATION: GENERAL APPEARANCE: Well-nourished, well-developed, appears stated age. Level of distress, comfortable. PSYCHIATRIC: Mental status, alert, normal affect. Orientation, oriented to time, place and person. EYES: Lids and conjunctiva, noninjected. No discharge, no pallor. ENT: Lips, teeth, gums, normal dentition. Oropharynx, no cyanosis, no pallor. NECK: Carotid arteries, bilateral normal upstroke, no bruits, no thrills. JUGULAR VEINS: No jugular venous pressure or distention. CERVICAL LYMPH NODES: Nontender, nonenlarged. THYROID: Not enlarged. Nontender. No nodules. LUNGS: Respiratory effort, unlabored. CHEST: Normal curvature. No thoracic deformity. No chest wall tenderness. Percussion, resonant. Auscultation, clear. No wheezes, no rales, no rhonchi. CARDIOVASCULAR: Precordial exam, nondisplaced. No heaves or pericardial thrills. Rate and rhythm, regular. Heart sounds, normal S1, normal S2. No S3, no gallop, no rub. Systolic murmur, not heard. Diastolic murmur, not heard. EXTREMITIES: No cyanosis, no edema. Peripheral pulses, full and equal in all extremities, except as noted. No bruits appreciated. ABDOMEN: Soft, nondistended. Normal aorta. No bruit. Nontender. No masses. Liver, nontender, no hepatomegaly. Spleen, nontender, no splenomegaly. MUSCULOSKELETAL: No joint tenderness. No joint swelling. No erythema. NEUROLOGICAL: Normal gait, normal strength, normal tone. SKIN: Warm and dry. REVIEW OF SYSTEMS: The patient reports easy bruising but reports no swollen glands. The patient reports no fever, no night sweats, no significant weight gain, no significant weight loss. No significant exercise tolerance. The patient reports no dry eyes, no irritation, no vision change. Patient reports no difficulty hearing and no ear pain. Patient reports no frequent nose bleeds or nose and sinus problems. Patient reports on arm pain on exertion. No shortness of breath while lying down. No history of heart murmur. Patient CONSULT REPORT [id number] KYLIE RIVERO reports no cough, no wheezing or coughing up blood. Patient reports no abdominal pain, no vomiting. Normal appetite. No diarrhea and not vomiting blood. No nausea and no constipation. Patient reports no incontinence. No difficulty urinating. No hematuria. No increased frequency. Patient reports no muscle aches. No weakness, no arthralgias, no back pain. No swelling of the extremities. Patient reports no abnormal mole, no jaundice, no rashes. Reports no loss of consciousness. No weakness and no numbness. No seizures, dizziness, or headaches. The patient reports no depression, no sleep disturbance, feeling safe in a relationship and no alcohol abuse. Patient reports on fatigue. Reports no runny nose or sinus pressure. No itching, no hives, and no frequent sneezing. OVERALL IMPRESSION: Chest pain compatible with angina in a patient with a past history of coronary artery disease. She may have recurrent hemodynamically significant coronary artery disease. She continues to have episodes of chest discomfort. Her seizure very well may be hypoperfusion from the dysrhythmia even though she has no evidence of dysrhythmia at this time. We will proceed with coronary angiography. Further care depends upon findings of the angiography. TRANSINT:[id number] Voice Confirmation ID: [id number] DOCUMENT ID: [id number] ADELITA ISAAC MD at 1438 CC: [id number] DICTATION DATE: 12/31/16 1154 BLOWER FEEDER DYED RAW STOCK: 12/31/16 1245 DIS IN 01/02/17 [place] [id number] [place] [address]
--- NOTE | 2017-02-09 08:20 | DS ---
PATIENT:KYLIE MOTTA :52 MEDICAL RECORD: [id number] DISCHARGE SUMMARY ADMISSION DATE: 12/30/16 DISCHARGE DATE: 01/02/17 DATE OF ADMISSION: 12/30/2016 DATE OF DISCHARGE: 01/02/2017 CONDITION ON DISCHARGE: Improved. ADMITTING DIAGNOSES: New onset seizures, hypoxia, chest pain. DISCHARGE DIAGNOSES: Pneumonia, hyperlipidemia, arteriosclerotic heart disease, history of coronary angioplasty, osteoporosis, new onset seizures, and depression. HOSPITAL COURSE: This patient is a 66-year-old female, who apparently was healthy, watching TV along with her , had a sudden onset, developed tonic-clonic seizure activity lasting from 2-5 minutes. The patient was quite sedated afterwards, presented to the Emergency Room. CT scan was performed, did reveal bilateral pneumonia. She was admitted to the ICU. PHYSICAL EXAMINATION: GENERAL: In the Emergency Room, she was afebrile. VITAL SIGNS: Stable. Complaining of 10 out of 10 chest pain. O2 sat was 94%. HEENT: Unremarkable. NECK: Supple. There is no adenopathy. HEART: Had regular rhythm. No murmurs, gallops or rubs. LUNGS: Clear. LABORATORY DATA: The patient had a CT scan of the chest showing borderline cardiomegaly, no active findings. The patient also had abdominal CT scan, which at the time of admission results were not known. She was somewhat hyponatremic. Sodium 129, glucose 162. Her D-dimer was slightly elevated at 2.21. ABG: She had a pH of 7.156, pCO2 of 65, ____, and O2 sat was 99%. The patient was admitted to the ICU, started on vancomycin as well as Levaquin. Cardiology consultation was obtained as well as neurology consultation. The patient had abdominal pelvic CT scan, which showed infiltrates or atelectasis in both lung bases, otherwise unremarkable. She also had a chest x-ray showing pneumonia, no acute cardiopulmonary disease could be appreciated. She had an MRI of the brain. MRI showed focal and increased T2 and decreased T1 signal within the anterior inferior right temporal lobe, most consistent with old encephalomalacia. This could reflect old trauma or chronic ischemia, slight prominence noted adjacent to the right temporal horn. The patient was seizure activity, we would recommend additional MRI with gadolinium. The patient had a thoracic T-spine, no obvious fractures are identified on the single frontal view of the thoracic spine. She had gallbladder ultrasound. The gallbladder ultrasound showed a fatty infiltrate in the liver. Venous Doppler revealed no evidence of DVT. She was seen by Dr. Dumont, mucker operator. On the , the patient had no further neurological events. The patient was therefore felt to be stable. On the , the patient was discharged home. DISCHARGE MEDICATIONS: She was discharged on Dilantin 100 mg p.o. t.i.d., Voltaren 75 b.i.d., Altace 2.5 mg once a day, alprazolam 0.5 mg q.6 hours p.r.n. DISCHARGE SUMMARY REPORT [id number] KYLIE MOTTA, and atorvastatin 80 mg once a day. DISCHARGE INSTRUCTIONS: The patient was to be on a regular diet. She would follow up with me in 1 week. Note, Toradol was given. She is to follow up with Dr. Stanley in a couple of weeks. TRANSINT:[id number] Voice Confirmation ID: [id number] DOCUMENT ID: [id number] TRAE ADAIR MD at 0820 CC: [id number] DICTATION DATE: 02/08/17 1531 DIE FINISHER: 02/08/17 2330 DIS IN 01/02/17 [place] [id number] [place] [address]
== END 2017-01-02 10:10 | disposition home or self-care (01) | DRG 286 ==
LOC: D.ER 20:03 → D.MS 22:56 → D.ICU 22:56 → D.CVICU 22:56 → D.ICU 23:59 → D.CVICU 12-31 20:30
PROVIDERS: Family Medicine; Internal Medicine Interventional Cardiology; ADMIT Family Medicine
PROC: B2151ZZ Fluoroscopy of Left Heart using Low Osmolar Contrast (ICD-10-PCS; 2016-12-31)
PROC: 4A023N7 Measurement of Cardiac Sampling and Pressure, Left Heart, Percutaneous Approach (ICD-10-PCS; 2016-12-31)
PROC: B2111ZZ Fluoroscopy of Multiple Coronary Arteries using Low Osmolar Contrast (ICD-10-PCS; principal; 2016-12-31 09:30)
DX: R07.89 Other chest pain (principal); J18.9 Pneumonia, unspecified organism; R56.9 Unspecified convulsions; E78.5 Hyperlipidemia, unspecified; I10 Essential (primary) hypertension; G93.89 Other specified disorders of brain; I25.119 Atherosclerotic heart disease of native coronary artery with unspecified angina pectoris; F32.9 Major depressive disorder, single episode, unspecified; M81.0 Age-related osteoporosis without current pathological fracture; Z95.5 Presence of coronary angioplasty implant and graft

== ENCOUNTER → 2017-01-24 15:16 | Outpatient (CLI) | payer MEDICARE, BC ==
[2016-12-31 09:43] VITALS: BMI 23.2
[~2017-01-24 15:16] MED LIST changes: +DILANTIN100 MG PO
== END | disposition home or self-care (01) ==
LOC: D.MRI 01-22 09:00
DX: M54.9 Dorsalgia, unspecified (principal)

== ENCOUNTER → 2017-01-28 10:47 | Outpatient (CLI) | payer MEDICARE, BC ==
[2016-12-31 09:43] VITALS: BMI 23.2
== END | disposition home or self-care (01) ==
LOC: D.CT 10:47
DX: J92.9 Pleural plaque without asbestos (principal)